=== PATIENT | female | born 1970 | race Two or more races ===

== ENCOUNTER 2020-03-17 12:05 | Outpatient (CLI) | payer OTHER ==
[~2020-03-17 12:05] MED LIST: PERCOCET 5/321 UDTAB PO
== END 2020-03-17 12:13 | disposition home or self-care (01) ==
LOC: SONOGRAMA 12:05
PROVIDERS: ATTEND Pathology Anatomic Pathology & Clinical Pathology
DX: E04.1 Nontoxic single thyroid nodule (principal)